=== PATIENT | male | born 1935 | race Two or more races ===

== ENCOUNTER 2019-07-15 09:41 | Emergency (ER) | payer MEDICARE, OTHER ==
--- NOTE | 2019-07-15 11:26 | ED Physician Documentation ---
PD HPI TRUNK INJURY - Stated complaint Stated Complaint: L SIDE PX - Chief complaint Chief Complaint: Trauma Ch/Bk - History obtained from History obtained from: Patient - History of Present Illness Location: Posterior chest, Left chest Type of injury: Fall (putting wires up on high shelf, lost balance and fell backward, striking left posterior chest/ribs on object. Pain localized. Continues to hurt with movement and palpation. Not pain with breathing.) Timing - onset: How many days ago (3) Timing - duration: Days (3) Timing - details: Abrupt onset, Still present Quality: Pain, Sharp Improved by: Rest Worsened by: Moving, Palpating Associated symtptoms: No: Weakness, Numbness, Discoloration Contributing factors: No: Anticoagulated Where injury occured: Home Recently seen: Not recently seen Review of Systems Constitutional: denies: Fever, Chills Nose: denies: Rhinorrhea / runny nose, Congestion Throat: denies: Sore throat Respiratory: denies: Dyspnea, Cough GI: denies: Abdominal Pain, Nausea, Vomiting Musculoskeletal: reports: Back pain Neurologic: reports: Other (poor sleep due to pain with lying/rolling over). denies: Generalized weakness, Focal weakness, Numbness PD PAST MEDICAL HISTORY - Past Medical History Cardiovascular: None Respiratory: None Neuro: None Endocrine/Autoimmune: None - Present Medications Home Medications: Ambulatory Orders Medication Instructions Recorded Confirmed Calcium Carbonate/Vitamin D3 2 tab ORAL BID 07/15/19 07/15/19 [Calcium 500-Vit D3 200 Tablet] Doxazosin [Cardura] 4 mg PO DAILY 07/15/19 07/15/19 Hydrocodone/Acetaminophen [[place] 1 each PO Q6H PRN #20 tablet 07/15/19 5-325 Tablet] Lisinopril [Zestril] 10 mg PO DAILY 07/15/19 07/15/19 Naproxen 375 mg PO BID #20 tablet 07/15/19 amLODIPine [Norvasc] 5 mg ORAL DAILY 07/15/19 07/15/19 - Allergies Allergies/Adverse Reactions: Allergies Allergy/AdvReac Type Severity Reaction Status Date / Time No Known Drug Allergies Allergy Verified 07/15/19 09:54 PD ED PE NORMAL - Vitals Vital signs reviewed: Yes - General General: Alert and oriented X 3, Well developed/nourished - HEENT HEENT: Atraumatic - Neck Neck: Supple, no meningeal sign, No bony TTP - Cardiac Cardiac: RRR, No murmur - Respiratory Respiratory: No respiratory distress, Clear bilaterally, Other (left posterolateral ribs tender without crepitance at lower ribs. No bruising. ) - Abdomen Abdomen: Normal bowel sounds, Soft, Non tender, Non distended - Derm Derm: Normal color, Warm and dry - Extremities Extremities: Normal ROM s pain - Neuro Neuro: Alert and oriented X 3, No motor deficit, Normal speech Results - Vitals Vitals: Vital Signs - 24 hr 07/15/19 07/15/19 07/15/19 09:55 10:50 11:52 Temperature 36.4 C L Heart Rate 62 64 86 Respiratory 16 16 18 Rate Blood Pressure 133/59 H 118/67 O2 Saturation 99 96 94 07/15/19 07/15/19 11:53 13:00 Temperature Heart Rate 63 Respiratory 16 Rate Blood Pressure 140/70 H 136/77 H O2 Saturation 97 Oxygen O2 Source Room air - EKG (time done) 11:33 Rate: Rate (enter#) (51) Rhythm: Sinus bradycardia QRS: Low voltage Ischemia: Normal ST segments. No: ST elevation c/w ischemia, ST depression - Rads (name of study) chest CT Radiology: Prelim report reviewed, See rad report (posterior left rib fractures 11 and 12, nondisplaced. No spine injuries. Mild local inflammation in lung c/w contusion.) PD MEDICAL DECISION MAKING - ED course Complexity details: reviewed results (left posterior ribs 11/12 fractures. No organ injuries. ), considered differential, d/w patient Departure - Departure Disposition: 01 Home, Self Care Clinical Impression: Accidental fall Qualifiers: Encounter type: initial encounter Qualified Code(s): W19.XXXA - Unspecified fall, initial encounter Left rib fracture Qualifiers: Encounter type: initial encounter Rib fracture type: multiple ribs Fracture type: closed Qualified Code(s): S22.42XA - Multiple fractures of ribs, left side, initial encounter for closed fracture Condition: Stable Record reviewed to determine appropriate education?: Yes Instructions: ED Fx Rib Follow-Up: Mike Goldberg MD [Primary Care Provider] - Prescriptions: Hydrocodone/Acetaminophen [[place] 5-325 Tablet] 1 each PO Q6H PRN #20 tablet PRN Reason: Pain Naproxen 375 mg PO BID #20 tablet Comments: You do have [address] ribs [address] your CT scan, #11 and 12 in the back left (where you are hurting). There is no injury to the lung heart kidney or spleen in the area. You will be sore likely for several weeks to a month but the worst is typically the first week. Use anti-inflammatories such as naproxen or ibuprofen 2-3 times a day. To that add Tylenol 4 times a day or instead hydrocodone if needed for worse pain, particularly at night. Have a daily stool softener to prevent constipation. Recheck if not improving well over the next week or if other symptoms develop such as trouble breathing etc. Discharge Date/Time: 07/15/19 14:05
[2019-07-15] MEDS ORDERED: IBUPROFEN 600 MG TABLET PO STA (11:40)
[2019-07-15] MEDS ORDERED: ACETAMINOPHEN 325 MG TABLET PO STA (11:40)
[2019-07-15 13:03] VITALS: BP 136/77
--- NOTE | 2019-07-15 13:11 | CT Report ---
Reason: fall with left chest wall pain Procedure Date: 07/15/2019 Accession Number: [id number] / [id number] Procedure: CT - CHEST WO CPT Code: Final Report FULL RESULT: EXAM: CT CHEST EXAM DATE: 07/15/2019 12:40 PM. CLINICAL HISTORY: Fall with left chest wall pain. COMPARISONS: None. TECHNIQUE: Routine helical CT imaging was performed through the chest. IV contrast: None. Reconstructions: Coronal and sagittal. In accordance with CT protocol optimization, one or more of the following dose reduction techniques were utilized for this exam: automated exposure control, adjustment of mA and/or KV based on patient size, or use of iterative reconstructive technique. FINDINGS: Lungs/Pleura: Mildly displaced left 11th and 12th rib fractures are noted (image 231 of series 4 and image 263 of series 4). Increased lung markings are noted within the adjacent lung that may represent a contusion or infiltrate. No pneumothorax is seen. Mediastinum: There is a large hiatal hernia. Atherosclerosis of the coronary arteries is noted. Bones: There are degenerative changes of the thoracic and lumbar spine. Visualized Abdomen: The visualized upper abdominal organs demonstrate a normal noncontrast CT appearance. Other: None. IMPRESSION: Left posterior 11th and 12th rib fractures. Increased lung markings in the adjacent lung that may represent a contusion or infiltrate. No evidence of a pneumothorax. RADIA
== END 2019-07-15 14:05 | disposition home or self-care (01) ==
LOC: ED 09:41
DX: S22.42XA Multiple fractures of ribs, left side, initial encounter for closed fracture (principal); W18.39XA Other fall on same level, initial encounter; Y93.89 Activity, other specified; Y92.009 Unspecified place in unspecified non-institutional (private) residence as the place of occurrence of the external cause
CPT/HCPCS: 71250; 93005; 99284; A9270

== ENCOUNTER 2020-12-24 14:09 | Emergency (ER) | payer MEDICARE, OTHER ==
[2020-12-24] MEDS ORDERED: PROPARACAINE 0.5% OPHTH DROPS 15 ML EACHEYE STA (14:30)
--- NOTE | 2020-12-24 14:56 | ED Physician Documentation ---
PD HPI OPHTHO - Stated complaint Stated Complaint: VISION BLURRY - Chief complaint Chief Complaint: Heent - History obtained from History obtained from: Patient - History of Present Illness Timing - details: Gradual onset Pain level max: 1 Pain level now: 0 Location: Left Quality / character: No: Itching, Burning, Aching, Throbbing, Sharp Associated symptoms: No: Redness, Swelling, Tearing, Discharge, Matting, FB sensation, Photophobia, Double vision, Decreased vision, Loss of vision, Headache Contributing factors: Wears glasses. No: Exposed to conjunctivitis, Recent URI, FB, UV light (welding etc), Chemical exposure, acid, Chemical exposure, base, Blunt trauma, Penetrating trauma, Irrigated CAR AUDIO INSTALLER, Wears contacts, Work related Similar symptoms before: Has not had sx before Recently seen: Not recently seen - Additional information Additional information: Patient is an 85-year-old male who states that his left eye vision appears blurry to him today. No loss of vision. No flashers. No trauma. He felt like something was in the eye earlier today, but does not feel that anymore. Nothing makes it better or worse. No redness, no tearing, no discharge, no photophobia. Wears glasses but not contacts. He contacted his organic gardening teacher who recommended he come here for evaluation. Patient has no other symptoms. The vision is not double. It is just not as sharp as usual. Review of Systems Constitutional: denies: Fever, Chills Eyes: denies: Loss of vision, Decreased vision, Photophobia, Discharge, Irritation Ears: denies: Ear pain Nose: denies: Rhinorrhea / runny nose, Congestion Throat: denies: Sore throat Cardiac: denies: Chest pain / pressure Respiratory: denies: Cough GI: denies: Vomiting, Diarrhea : denies: Dysuria Skin: denies: Rash Neurologic: denies: Focal weakness, Numbness, Seizure, Confused, Headache, Head injury, LOC PD PAST MEDICAL HISTORY - Past Medical History Past Medical History: Yes Cardiovascular: Hypertension Respiratory: None Neuro: None Endocrine/Autoimmune: None GI: GERD - Past Surgical History Past Surgical History: Yes Ortho: Other - Present Medications Home Medications: Ambulatory Orders Medication Instructions Recorded Confirmed Doxazosin [Cardura] 4 mg PO DAILY 07/15/19 12/24/20 Lisinopril [Zestril] 10 mg PO DAILY 07/15/19 12/24/20 amLODIPine [Norvasc] 5 mg ORAL DAILY 07/15/19 12/24/20 Duloxetine HCl [Cymbalta] 60 mg PO DAILY 12/24/20 12/24/20 buPROPion [Wellbutrin Sr] 150 mg PO DAILY PM 12/24/20 12/24/20 - Allergies Allergies/Adverse Reactions: Allergies Allergy/AdvReac Type Severity Reaction Status Date / Time No Known Drug Allergies Allergy Verified 12/24/20 14:22 - Social History Does the pt smoke?: No Smoking Status: Never smoker Does the pt drink ETOH?: Yes Does the pt have substance abuse?: No - Immunizations Immunizations are current?: Yes PD ED PE NORMAL - Vitals Vital signs reviewed: Yes - General General: Alert and oriented X 3, No acute distress, Well developed/nourished - HEENT HEENT: PERRL, Moist mucous membranes, Other (No fluorescein uptake. Intraocular pressure of 12-13 on the left eye. Limited funduscopic exam but appears normal. Bedside ultrasound reveals a normal optic nerve. No papilledema. No visible debris.) - Neck Neck: Supple, no meningeal sign - Cardiac Cardiac: RRR - Respiratory Respiratory: No respiratory distress, Clear bilaterally - Derm Derm: Warm and dry - Extremities Extremities: Normal ROM s pain - Neuro Neuro: Alert and oriented X 3, affirmative action specialist 2-12 intact, No motor deficit, No sensory deficit, Normal speech Eye Opening: Spontaneous Motor: Obeys Commands Verbal: Oriented GCS Score: 15 - Psych Psych: Normal mood, Normal affect Results - Vitals Vitals: Vital Signs - 24 hr 12/24/20 14:19 Temperature 36.5 C Heart Rate 86 Respiratory 16 Rate Blood Pressure 131/76 H O2 Saturation 98 Oxygen O2 Source Room air PD MEDICAL DECISION MAKING - ED course Complexity details: reviewed results, re-evaluated patient, considered differential, d/w patient ED course: Unclear etiology of the patient's blurry vision today. No acute findings on examination. Recommend that he follow-up with ophthalmology today if possible. We'll give him the name of two ophthalmologists. The patient's organic gardening teacher is in [facility]. He states that he did contact his doctor who referred him to the emergency department. Patient counseled regarding signs and symptoms for which I believe and urgent re-evaluation would be necessary. Patient with good understanding of and agreement to plan and is comfortable going home at this time This document was made in part using voice recognition software. While efforts are made to proofread this document, sound alike and grammatical errors may occur. No acute findings on fluorescein stain, normal pressure, normal retinal exam as far as I can visualize and appears normal on ultrasound. Departure - Departure Disposition: 01 Home, Self Care Clinical Impression: Blurry vision Condition: Good Instructions: Vision Probs Follow-Up: Jovan Cho MD [Provider Admit Priv/Credential] - Within 3 Days Comments: You can also call [facility] which is in the parking lot to see if they can see you today. Dr. Cho may be able to see you today as well. Your examination here appears normal. Please follow-up closely with ophthalmology for further care.
[2020-12-24 16:07] VITALS: BP 128/64
== END 2020-12-24 15:00 | disposition home or self-care (01) ==
LOC: ED 14:09
DX: H53.8 Other visual disturbances (principal); I10 Essential (primary) hypertension
CPT/HCPCS: 99282; 99284; J3490

== ENCOUNTER 2022-07-18 10:50 | Emergency (ER) | payer MEDICARE, BC ==
--- NOTE | 2022-07-18 12:12 | ED Physician Documentation ---
History of Present Illness - Stated complaint Stated Complaint: GLF/HEAD INJ/LEG PX - Chief complaint Chief Complaint: Trauma Hd/Nk - Additonal information Additional information: 86-year-old male is brought to the emergency department for evaluation of facial trauma and left hip pain. He states that 2 days ago he was taking trash out to the garbage can when he slipped on wet grass he fell forward into the ground and has large abrasions and bruising around his left face. Denies loss of consciousness. However he has had been having pain in his left thigh and hip for about 2 weeks. It is worse after the fall. He did go to a local walk-in clinic and because he is on Eliquis due to history of atrial fibrillation they advised him to come to the ER for CT imaging of the head. Though the patient has no previous history of DVT the patient's is concerned that the thigh pain could be a sign of deep vein thrombosis. Patient reports compliance with his Eliquis. He is unsure if he had a fall previous to 2 weeks ago. Patient is elderly and a fair historian. Review of Systems Constitutional: denies: Fever, Chills Eyes: reports: Reviewed and negative Nose: reports: Reviewed and negative Throat: reports: Reviewed and negative Cardiac: reports: Reviewed and negative Respiratory: reports: Reviewed and negative GI: reports: Reviewed and negative Skin: reports: Abrasion (s) Musculoskeletal: reports: Joint pain Neurologic: denies: Near syncope PD PAST MEDICAL HISTORY - Past Medical History Cardiovascular: Hypertension Respiratory: None Neuro: None Endocrine/Autoimmune: None GI: GERD - Past Surgical History Past Surgical History: Yes Ortho: Other - Present Medications Home Medications: Ambulatory Orders Medication Instructions Recorded Confirmed Doxazosin [Cardura] 4 mg PO DAILY 07/15/19 07/18/22 Lisinopril [Zestril] 10 mg PO DAILY 07/15/19 07/18/22 amLODIPine [Norvasc] 5 mg ORAL DAILY 07/15/19 07/18/22 buPROPion [Wellbutrin Sr] 150 mg PO DAILY PM 12/24/20 07/18/22 Apixaban [Eliquis] 2.5 mg PO BID 07/18/22 07/18/22 Sertraline HCl 150 mg PO DAILY 07/18/22 07/18/22 - Allergies Allergies/Adverse Reactions: Allergies Allergy/AdvReac Type Severity Reaction Status Date / Time No Known Drug Allergies Allergy Verified 07/18/22 11:34 - Social History Does the pt smoke?: No Smoking Status: Never smoker Does the pt drink ETOH?: Yes Does the pt have substance abuse?: No - Immunizations Immunizations are current?: Yes PD ED PE NORMAL - General General: Alert and oriented X 3, No acute distress, Well developed/nourished - HEENT HEENT: EOMI, Ears normal, Moist mucous membranes, Other (No hemotympanums. Large area of bruising and ecchymosis on the left face periorbital region and left cheek. PERRLA as well as EOMI). No: Atraumatic - Cardiac Cardiac: No murmur, Strong equal pulses. No: RRR (Irregularly irregular. Atrial fibrillation on the monitor) - Respiratory Respiratory: No respiratory distress, Clear bilaterally - Abdomen Abdomen: Normal bowel sounds, Soft, Non tender - Back Back: No spinal TTP (No tenderness elicited with palpation of the cervical, thoracic or lumbar spinous processes.) - Extremities Extremities: No deformity, No tenderness to palpate. No: Normal ROM s pain (Mild tenderness with palpation of the left proximal femur. Full range of motion in the hip. He has a mildly antalgic gait. No obvious deformity malrotation or leg shortening) - Neuro Neuro: Alert and oriented X 3, care taker 2-12 intact Eye Opening: Spontaneous Motor: Obeys Commands Verbal: Oriented GCS Score: 15 Results - Vitals Vitals: Vital Signs - 24 hr 07/18/22 07/18/22 07/18/22 11:35 11:41 12:11 Temperature 36.5 C Heart Rate 74 56 L 62 Respiratory 18 29 H 17 Rate Blood Pressure 138/72 H 101/66 146/63 H O2 Saturation 100 99 100 07/18/22 13:00 Temperature Heart Rate 55 L Respiratory 14 Rate Blood Pressure 136/64 H O2 Saturation 100 Oxygen O2 Source Room air - Rads (name of study) US DVT Radiology: Final report received (No deep vein thrombosis of the left leg. Whitfield's cyst.) Max fac CT Radiology: Final report received (Normal maxillofacial CT without fracture) head CT Radiology: Final report received (Atrophy and chronic ischemic change without intracranial hemorrhage or mass-effect) cervical CT Radiology: Final report received (Degenerative disc disease and arthropathy without fracture or traumatic malalignment) pelvic CT Radiology: Final report received (No acute fracture or osseous lesion or dislocation. Hematoma within the soft hip tissues) PD Medical Decision Making - ED course Complexity details: reviewed results, considered differential, d/w patient ED course: 86-year-old male presents emergency department for evaluation of facial trauma after ground-level fall 2 days ago. History of atrial fibs and is anticoagulated on Eliquis. He did not lose consciousness but sustained a large area of ecchymosis on the left side of his face surrounding his left eye. EOMIs were intact. He presents alert and otherwise well-appearing and nonfocal. He had also reported pain in his left hip for about 2 weeks that was certainly worse after the fall. Here in the emergency department CT of the head max face and cervical series showed no acute fracture bruises or bleeding. We did obtain a pelvic CT to evaluate for hip fracture and do not find any osseous lesions though he does have a left hip hematoma which is likely the source of the pain. His is concerned that he could have a DVT and that ultrasound was reassuringly negative. However given his limp with ambulation, advancing age as well as anticoagulation status he is going to be dispensed a walker upon discharge. Will follow closely with PCP. Emergent return precautions otherwise discussed. Departure - Departure Disposition: 01 Home, Self Care Clinical Impression: Fall from ground level, Anticoagulated Facial abrasion Qualifiers: Encounter type: initial encounter Qualified Code(s): S00.81XA - Abrasion of other part of head, initial encounter Hip hematoma, left Qualifiers: Encounter type: initial encounter Qualified Code(s): S70.02XA - Contusion of left hip, initial encounter Whitfield's cyst of knee Qualifiers: Laterality: left Qualified Code(s): M71.22 - Synovial cyst of popliteal space [Whitfield], left knee Condition: Stable Record reviewed to determine appropriate education?: Yes Instructions: ED Hematoma Comments: You were seen today in the emergency department because you had a fall 2 days ago while on Eliquis for your history of atrial fibrillation. You do have a large area of bruising on your left side of the face. This will simply heal with time. You can apply bacitracin to your abrasions and cuts. The CTs of your head, facial bones and neck do not show any broken bones bruising or bleeding within the brain. We also did a pelvic CT and do not find any broken bones however there is a large hematoma in the soft tissue of the hip which is likely the cause of your pain. The ultrasound of your leg did not show a blood clot. You do have a Whitfield's cyst which is a fluid-filled sac behind your left knee. This helps the joint move. It is bruised and this is most likely because of the fall a few days ago. There is no specific treatment for it at this time this will simply resolve. Because you are at higher risk for falls I am dispensing you with a walker. I encourage you to use this when ambulating out of bed. If you find that your walking is improving once the hematomas resolve you may be able to walk without it. Please return immediately to the ER for any fevers, sudden severe headache, slurred speech, facial droop or any concerns for your symptoms to resolve
--- OUTSIDE RECORDS SUMMARY | 2022-07-18 12:18 | EXTERNAL MEDICAL SUMMARY RPT | Continuity of Care Document ---
:1935 Author Organization [facility] Address [address] [place] [address] Phone Care Team Providers Name Role Phone Unavailable Unavailable Unavailable Dom Carrillo Robert Unavailable Unavailable Andre Patient Registrar, Nalini Unavailable Unavai lable Allergies No information. Encounters No information. Functional Status No information. Immunizations No information. Medications date description facility 2022-07-17 00:00 apixaban [facility] 2022-07-17 00:00 apixaban [facility] 2022-07-18 00:00 apixaban [facility] 2022-07-17 00:00 lisinopril [facility] 2022-07-17 00:00 lisinopril [facility] 2022-07-18 00:00 lisinopril [facility] 2022-07-17 00:00 hydroxyzine hcl [facility] 2022-07-17 00:00 hydroxyzine hcl [facility] 2022-07-18 00:00 hydroxyzine hcl [facility] 2022-07-17 00:00 bupropion hcl [facility] 2022-07-17 00:00 bupropion hcl [facility] 2022-07-18 00:00 bupropion hcl [facility] 2022-07-17 00:00 hydroxyzine hcl [facility] 2022-07-17 00:00 hydroxyzine hcl [facility] 2022-07-18 00:00 hydroxyzine hcl [facility] 2022-07-17 00:00 methocarbamol [facility] 2022-07-17 00:00 methocarbamol [facility] 2022-07-17 00:00 apixaban [facility] 2022-07-17 00:00 apixaban [facility] 2022-07-18 00:00 apixaban [facility] 2022-07-17 00:00 apixaban [facility] 2022-07-17 00:00 apixaban [facility] 2022-07-18 00:00 apixaban [facility] 2022-07-17 00:00 amlodipine [facility] 2022-07-17 00:00 amlodipine [facility] 2022-07-18 00:00 amlodipine [facility] 2022-07-17 00:00 doxazosin [facility] 2022-07-17 00:00 doxazosin [facility] 2022-07-18 00:00 doxazosin [facility] 2022-07-17 00:00 methocarbamol [facility] 2022-07-17 00:00 methocarbamol [facility] 2022-07-17 00:00 amlodipine [facility] 2022-07-17 00:00 amlodipine [facility] 2022-07-18 00:00 amlodipine [facility] 2022-07-17 00:00 doxazosin [facility] 2022-07-17 00:00 doxazosin [facility] 2022-07-18 00:00 doxazosin [facility] 2022-07-17 00:00 lisinopril [facility] 2022-07-17 00:00 lisinopril [facility] 2022-07-18 00:00 lisinopril [facility] 2022-07-17 00:00 sertraline [facility] 2022-07-17 00:00 sertraline [facility] 2022-07-18 00:00 sertraline [facility] 2022-07-17 00:00 sertraline [facility] 2022-07-17 00:00 sertraline [facility] 2022-07-18 00:00 sertraline [facility] 2022-07-17 00:00 lisinopril [facility] 2022-07-17 00:00 lisinopril [facility] 2022-07-18 00:00 lisinopril [facility] 2022-07-17 00:00 methocarbamol [facility] 2022-07-17 00:00 methocarbamol [facility] 2022-07-17 00:00 amlodipine [facility] 2022-07-17 00:00 amlodipine [facility] 2022-07-18 00:00 amlodipine [facility] 2022-07-17 00:00 lisinopril [facility] 2022-07-17 00:00 lisinopril [facility] 2022-07-18 00:00 lisinopril [facility] 2022-07-17 00:00 doxazosin [facility] 2022-07-17 00:00 doxazosin [facility] 2022-07-18 00:00 doxazosin [facility] 2022-07-17 00:00 hydroxyzine hcl [facility] 2022-07-17 00:00 hydroxyzine hcl [facility] 2022-07-18 00:00 hydroxyzine hcl [facility] 2022-07-17 00:00 sertraline [facility] 2022-07-17 00:00 sertraline [facility] 2022-07-18 00:00 sertraline [facility] 2022-07-17 00:00 bupropion hcl [facility] 2022-07-17 00:00 bupropion hcl [facility] 2022-07-18 00:00 bupropion hcl [facility] 2022-07-17 00:00 amlodipine [facility] 2022-07-17 00:00 amlodipine [facility] 2022-07-18 00:00 amlodipine [facility] 2022-07-17 00:00 sertraline [facility] 2022-07-17 00:00 sertraline [facility] 2022-07-18 00:00 sertraline [facility] 2022-07-17 00:00 doxazosin [facility] 2022-07-17 00:00 doxazosin [facility] 2022-07-18 00:00 doxazosin [facility] 2022-07-17 00:00 methocarbamol [facility] 2022-07-17 00:00 methocarbamol [facility] 2022-07-17 00:00 apixaban [facility] 2022-07-17 00:00 apixaban [facility] 2022-07-18 00:00 apixaban [facility] 2022-07-17 00:00 bupropion hcl [facility] 2022-07-17 00:00 bupropion hcl [facility] 2022-07-18 00:00 bupropion hcl [facility] 2022-07-17 00:00 bupropion hcl [facility] 2022-07-17 00:00 bupropion hcl [facility] 2022-07-18 00:00 bupropion hcl [facility] 2022-07-17 00:00 hydroxyzine hcl [facility] 2022-07-17 00:00 hydroxyzine hcl [facility] 2022-07-18 00:00 hydroxyzine hcl [facility] Problems date description facility 2022-07-17 00:00 Contusion of right ear [facility] 2022-07-17 00:00 No current problems or disability - [facility] 2022-07-17 00:00 Anticoagulant therapy [facility] 2022-07-17 00:00 Pain in left lower limb [facility] 2022-07-17 00:00 Pain in limb [facility] 2022-07-17 00:00 Pain in left leg [facility] 2022-07-17 00:00 Contusion of other part of head, [facility] encounter [facility] [place] 2022-07-17 00:00 Long-term (current) use of [facility] [place] 2022-07-17 00:00 long term care administrator (current) use of [facility] Procedures date description facility 2022-07-17 00:00 Visit Code Hold [facility] Results/Labs No information. Social History date description facility 2022-07-17 00:00 Never smoker [facility] 2022-07-17 00:00 Unknown if ever smoked [facility] Vital Signs date measurement value units 2022-07-17 00:00 BMI 26.40 kg/m2 2022-07-17 00:00 BP_diastolic 72 mmHg 2022-07-17 00:00 BP_systolic 122 mmHg 2022-07-17 00:00 heart_rate 88 /min 2022-07-17 00:00 height_metric 172.72 cm 2022-07-17 00:00 height_standard 68 in 2022-07-17 00:00 respiration_rate 16 /min 2022-07-17 00:00 temperature_metric 36.11 C 2022-07-17 00:00 temperature_standard 97 F 2022-07-17 00:00 weight_metric 78.47 kg 2022-07-17 00:00 weight_standard 173 lb
--- NOTE | 2022-07-18 13:44 | CT Report ---
PROCEDURE: CT brain without contrast INDICATIONS: 86-year-old male with head trauma, anticoagulation TECHNIQUE: Noncontrast 4.5 mm thick angled axial sections acquired from the foramen magnum to the vertex. For r adiation dose reduction, the following was used: automated exposure control, adjustment of mA and/or kV according to patient size. COMPARISON: None. FINDINGS: Image quality: Excellent. CSF spaces: Basal cisterns are patent. No extra-axial fluid collections. Ventricles are normal in size and shape. Brain: No midline shift. No intracranial masses or hemorrhage. Sherman-white matter interface is norm al. Moderate atrophy and multifocal white matter chronic ischemic change noted. Atherosclerotic vasc ular calcification noted in the cavernous segments of both internal carotid arteries as well as the i ntradural vertebral arteries. Skull and face: Calvarium and visualized facial bones are intact, without suspicious lesions. Unila teral left intraocular lens replacement Sinuses: Visualized sinuses and mastoids are clear. IMPRESSION: Atrophy and chronic ischemic change without intracranial hemorrhage or mass effect Reviewed by: Darwin Vieyra MD on 07/18/2022 12:42 PM [facility] Approved by: Darwin Vieyra MD on 07/18/2022 12:42 PM AK[facility] Station ID: [id number]
--- NOTE | 2022-07-18 13:47 | CT Report ---
PROCEDURE: Maxillofacial CT without contrast INDICATIONS: 86-year-old male with ground-level fall and left eye bruising TECHNIQUE: Noncontrast 1.5 mm thick axial images acquired from the mandible through the frontal sinuses, with co trish and sagittal reformatting. For radiation dose reduction, the following was used: automated ex posure control, adjustment of mA and/or kV according to patient size. COMPARISON: None. FINDINGS: Image quality: Excellent. Bones and teeth: Orbital mejia are intact. Incidental unilateral left intraocular lens replacement S inus mejia show no fracture or deformity. Nasal bones and septum are intact. Visualized portions of the mandible demonstrate no fractures or subluxation. Zygomatic arches are intact. Pterygoid plate s are intact. Visualized portions of the skull base and auditory canals are intact. Sinuses: Mild left frontal and left maxillary sinus mucosal thickening Soft tissues: No edema, masses, or fluid collections. No enlarged lymph nodes. No soft tissue lace rations or debris. Vascular: Visualized vascular structures appear normal in the absence of contrast. Bony vascular fo ramina and canals are intact. IMPRESSION: Normal maxillofacial CT without fracture Reviewed by: Darwin Vieyra MD on 07/18/2022 12:45 PM [place] Approved by: Darwin Vieyra MD on 07/18/2022 12:45 PM [facility] Station ID: [id number]
--- NOTE | 2022-07-18 13:48 | CT Report ---
PROCEDURE: PELVIS WO INDICATIONS: left hip; ? fx TECHNIQUE: Noncontrast 3 mm axial sections acquired through the bony pelvis, with coronal and sagittal reformatt ing. For radiation dose reduction, the following was used: automated exposure control, adjustment of mA and/or kV according to patient size. COMPARISON: None. FINDINGS: Image quality: Excellent. Bones: No displaced fracture. No dislocation. Scattered degenerative changes. Partially visualized l umbosacral spondylosis is also seen. No suspicious osseous lesions. Scattered enthesophytes, for exam ple at the hamstrings attachment. Soft tissues: Colonic diverticula. Hematoma. No drainable fluid collection. No lymphadenopathy or an eurysm on this noncontrast limited study. IMPRESSION: No displaced fracture or dislocation. Other findings as above Reviewed by: Darrius Riojas MD on 07/18/2022 1:46 PM PST Approved by: Darrius Riojas MD on 07/18/2022 1:46 PM PST Station ID: [id number]
--- NOTE | 2022-07-18 13:56 | CT Report ---
PROCEDURE: CT cervical spine without contrast INDICATIONS: 86-year-old male status post ground level fall, neck pain TECHNIQUE: Noncontrast 3 mm thick sections acquired from the skull base to the T4 level. Sagittal and coronal r eformats were then constructed. For radiation dose reduction, the following was used: automated exp osure control, adjustment of mA and/or kV according to patient size. COMPARISON: None. FINDINGS: Image quality: Excellent. Bones: No fractures or dislocations. Visualized superior ribs are intact. Degenerative disc space narrowing and hypertrophic facet joints and noted in the mid to lower cervica l spine. Cranial vertebral relationships and bone mineralization normal. Moderate central stenosis at C3-4 Soft tissues: Prevertebral soft tissues are normal in thickness. No paravertebral hematomas. No ap ical pneumothoraces. IMPRESSION: Degenerative disc disease and arthropathy without fracture or traumatic malalignment Reviewed by: Darwin Vieyra MD on 07/18/2022 12:54 PM [facility] Approved by: Darwin Vieyra MD on 07/18/2022 12:54 PM [facility] Station ID: [id number]
[2022-07-18 14:14] VITALS: BP 100/60
--- NOTE | 2022-07-18 14:41 | Ultrasound Report ---
PROCEDURE: Duplex Ext Veins Left INDICATIONS: left thigh pain; ? dvt TECHNIQUE: Real-time imaging, as well as color and pulse Doppler interrogation, were performed of the lower extr emity deep veins from the inguinal ligament to the popliteal fossa. COMPARISON: None. FINDINGS: The deep veins are normally compressible, and free of intraluminal thrombus. Color and pu lse Doppler demonstrate normal phasic intraluminal flow. There is normal augmentation response to di stal compression maneuver. IMPRESSION: No evidence of deep venous thrombosis, left lower extremity. Small popliteal cyst measures 1.7 x 2.1 cm Reviewed by: Darwin Vieyra MD on 07/18/2022 1:40 PM [place] Approved by: Darwin Vieyra MD on 07/18/2022 1:40 PM [facility] Station ID: [id number]
== END 2022-07-18 15:23 | disposition home or self-care (01) ==
LOC: ED 10:50
DX: S00.81XA Abrasion of other part of head, initial encounter (principal); S70.02XA Contusion of left hip, initial encounter; W01.0XXA Fall on same level from slipping, tripping and stumbling without subsequent striking against object, initial encounter; Z91.81 History of falling; Y93.E9 Activity, other interior property and clothing maintenance; Y92.007 Garden or yard of unspecified non-institutional (private) residence as the place of occurrence of the external cause; M71.22 Synovial cyst of popliteal space [Baker], left knee; Z79.01 Long term (current) use of anticoagulants
CPT/HCPCS: 36415; 99284

== ENCOUNTER 2023-02-24 23:44 | Outpatient (CLI) | payer MEDICARE, BC | END 2023-02-24 23:59 | disposition critical access hospital (66) | LOC: EMS 23:44 | DX: S00.01XA Abrasion of scalp, initial encounter (principal); M54.2 Cervicalgia; M25.552 Pain in left hip; Z79.01 Long term (current) use of anticoagulants; W18.39XA Other fall on same level, initial encounter; Y92.002 Bathroom of unspecified non-institutional (private) residence as the place of occurrence of the external cause | CPT/HCPCS: A0425; A0429 ==

== ENCOUNTER 2023-02-25 00:12 | Emergency (ER) | payer MEDICARE, BC ==
--- NOTE | 2023-02-25 00:20 | ED Physician Documentation ---
PD HPI Fall - Stated complaint Stated Complaint: GLF - HIT HEAD - History obtained from History obtained from: Patient, EMS - Additional information Additional information: BIBA. HPI from patient and EMS. Presents from home due to fall. Patient says he fell shortly before 911 was called due to loss of balance while walking from his bed to the bathroom; he indicates to me that this is not a new problem for him (balance issues with ambulation). He takes eliquis for atrial fibrillation. He is asymptomatic on my HPI. He denies LOC, denies YU, denies pain. He indicates to me that he knows he needs to have low threshold for calling 911 after a fall because he is taking eliquis. EMS indicates that patient was c/o mild left hip pain and neck pain on their evaluation on scene. PD PAST MEDICAL HISTORY - Past Medical History Cardiovascular: Hypertension Respiratory: None Neuro: None Endocrine/Autoimmune: None GI: GERD - Past Surgical History Past Surgical History: Yes Ortho: Other - Present Medications Home Medications: Ambulatory Orders Medication Instructions Recorded Confirmed Doxazosin [Cardura] 4 mg PO DAILY 07/15/19 07/18/22 Lisinopril [Zestril] 10 mg PO DAILY 07/15/19 07/18/22 amLODIPine [Norvasc] 5 mg ORAL DAILY 07/15/19 07/18/22 buPROPion [Wellbutrin Sr] 150 mg PO DAILY PM 12/24/20 07/18/22 Apixaban [Eliquis] 2.5 mg PO BID 07/18/22 07/18/22 Sertraline HCl 150 mg PO DAILY 07/18/22 07/18/22 - Allergies Allergies/Adverse Reactions: Allergies Allergy/AdvReac Type Severity Reaction Status Date / Time No Known Drug Allergies Allergy Verified 07/18/22 11:34 - Social History Does the pt smoke?: No Smoking Status: Never smoker Does the pt drink ETOH?: Yes Does the pt have substance abuse?: No - Immunizations Immunizations are current?: Yes PD ED PE NORMAL - Vitals Vital signs reviewed: Yes - General General: Alert and oriented X 3, No acute distress, Well developed/nourished, Other (cervical collar in place on arrival) - HEENT HEENT: Atraumatic, PERRL, EOMI - Neck Neck: No bony TTP (cervical collar left in place; palpation is through posterior opening in cervical collar) - Cardiac Cardiac: RRR - Respiratory Respiratory: No respiratory distress, Clear bilaterally - Abdomen Abdomen: Soft, Non tender - Neuro Neuro: Alert and oriented X 3, manager night 2-12 intact, No motor deficit, No sensory deficit, Normal speech Eye Opening: Spontaneous Motor: Obeys Commands Verbal: Oriented GCS Score: 15 - Psych Psych: Normal mood, Normal affect PD ED PE EXPANDED - Cardiac Cardiac: Murmur Present (3/6 LETI across precordium but most pronounced at base) Results - Vitals Vitals: Oxygen O2 Source Room air - Rads (name of study) CTH Relevant Findings:: Prelim report reviewed, See rad report CT cervical spine Relevant Findings:: Prelim report reviewed, See rad report PD Medical Decision Making - ED course Complexity details: reviewed results, re-evaluated patient, considered differential, d/w patient ED course: No acute abnormalities on CTH, CT cervical spine. Denies LOC and says he fell due to loss of balance, indicates to me on HPI that this (loss of balance) is an ongoing issue for him and thus no other testing undertaken at this time aside from the CT scans. On reevaluation, results of CT scans d/w patient. Return precautions reviewed. He remains asymptomatic and AAOx3. Departure - Departure Disposition: 01 Home, Self Care Clinical Impression: Accidental fall Condition: Good Instructions: ED Prevention Fall, ED Fall Dizziness Weakn Balance Comments: There were no concerning findings on the CT scan of your head, CT scan of your neck. The CT scan of the neck does show degenerative changes, which is not an unexpected finding (over time, degenerative changes are common in the joints including the vertebrae of the back and neck). Most importantly, there is no evidence of any bleeding on the CT scan of your head, which is a concern anytime you have a fall with head injury while taking a blood thinner strong as Eliquis. Forms: PCP List Discharge Date/Time: 02/25/23 02:55
--- NOTE | 2023-02-25 01:32 | CT Report ---
PROCEDURE: CERVICAL SPINE WO INDICATIONS: fall, neck pain TECHNIQUE: Noncontrast 3 mm thick sections acquired from the skull base to the T4 level. Sagittal and coronal r eformats were then constructed. For radiation dose reduction, the following was used: automated exp osure control, adjustment of mA and/or kV according to patient size. COMPARISON: Similar CT 07/18/2022. FINDINGS: Image quality: Excellent. Bones: No fractures or dislocations. Visualized superior ribs are intact. Soft tissues: Prevertebral soft tissues are normal in thickness. No paravertebral hematomas. No ap ical pneumothoraces. 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 Reviewed by: Gustabo Savage MD on 02/25/2023 1:30 AM PDT Approved by: Gustabo Savage MD on 02/25/2023 1:30 AM PDT Station ID: [id number]
--- NOTE | 2023-02-25 01:33 | CT Report ---
PROCEDURE: HEAD WO INDICATIONS: fall, head injury, on eliquis TECHNIQUE: Noncontrast 4.5 mm thick angled axial sections acquired from the foramen magnum to the vertex. For r adiation dose reduction, the following was used: automated exposure control, adjustment of mA and/or kV according to patient size. COMPARISON: Similar CT 07/18/2022. FINDINGS: Image quality: Excellent. CSF spaces: Basal cisterns are patent. No extra-axial fluid collections. Ventricles are normal in size and shape. Brain: No midline shift. No intracranial masses or hemorrhage. Sherman-white matter interface is norm al. Skull and face: Calvarium and visualized facial bones are intact, without suspicious lesions. Sinuses: Visualized sinuses and mastoids are clear. IMPRESSION: No trauma found. Reviewed by: Gustabo Savage MD on 02/25/2023 1:31 AM PDT Approved by: Gustabo Savage MD on 02/25/2023 1:31 AM PDT Station ID: [id number]
[2023-02-25 02:47] VITALS: BP 143/62; O2SAT 96
== END 2023-02-25 02:55 | disposition home or self-care (01) ==
LOC: EDSEX → EDBD → EDUNIT# → ED 00:12
DX: Z04.3 Encounter for examination and observation following other accident (principal); Z79.01 Long term (current) use of anticoagulants
CPT/HCPCS: 99283; 99284

== ENCOUNTER 2023-03-15 13:53 | Outpatient (CLI) | payer MEDICARE, BC | END 2023-03-15 13:54 | disposition critical access hospital (66) | LOC: EMS 13:53 | DX: S01.111A Laceration without foreign body of right eyelid and periocular area, initial encounter (principal); W01.0XXA Fall on same level from slipping, tripping and stumbling without subsequent striking against object, initial encounter; Y92.512 Supermarket, store or market as the place of occurrence of the external cause | CPT/HCPCS: A0425; A0429 ==

== ENCOUNTER 2023-03-15 14:17 | Emergency (ER) | payer MEDICARE, BC ==
[2023-03-15] MEDS ORDERED: lidocaine 1% 20 ML MDV SUBQ ONE (14:33)
[2023-03-15] MEDS ORDERED: lidocaine 1% 20 ML MDV ONE (14:34)
--- NOTE | 2023-03-15 14:56 | ED Physician Documentation ---
PD HPI HEAD INJURY - Stated complaint Stated Complaint: GLF/EYE LAC - Chief complaint Chief Complaint: Trauma Hd/Nk - History obtained from History obtained from: Patient, EMS - Additional information Additional information: The patient comes to the emergency department via EMS with chief complaint of head injury after slipping and falling at the grocery store. He states there was something slippery on the hard surface floor there and he suddenly felt his feet going out from under him. He believes he hit his head on the floor that he is not entirely sure because it happened so fast. He is reported to have a laceration above his right eye thought to be from the rim of his glasses. The patient denies any other injuries other than feeling like he might of "bruised his knee". He was helped to the stretcher by medics from the floor and did not feel any hip pain. He denies neck, back, shoulder, rib, or abdominal pain. No hip or pelvic pain. He did not lose consciousness. No visual changes in his right eye. He is anticoagulated. No other complaints at this time. Injury happened just prior to transport to the ED. PD PAST MEDICAL HISTORY - Past Medical History Cardiovascular: Hypertension, Atrial fibrillation Respiratory: None Neuro: None Endocrine/Autoimmune: None GI: GERD - Past Surgical History Past Surgical History: Yes Ortho: Other - Present Medications Home Medications: Ambulatory Orders Medication Instructions Recorded Confirmed Doxazosin [Cardura] 2 mg PO TID 07/15/19 03/15/23 Lisinopril [Zestril] 10 mg PO DAILY 07/15/19 03/15/23 amLODIPine [Norvasc] 5 mg ORAL DAILY 07/15/19 03/15/23 buPROPion [Wellbutrin Sr] 150 mg PO DAILY PM 12/24/20 03/15/23 Apixaban [Eliquis] 2.5 mg PO BID 07/18/22 03/15/23 Sertraline HCl 100 mg PO BID 07/18/22 03/15/23 Omeprazole Magnesium 20 mg PO DAILY 03/15/23 03/15/23 hydrOXYzine HCL [Hydroxyzine HCl] 25 mg PO BID PRN 03/15/23 03/15/23 - Allergies Allergies/Adverse Reactions: Allergies Allergy/AdvReac Type Severity Reaction Status Date / Time No Known Drug Allergies Allergy Verified 03/15/23 14:24 - Social History Does the pt smoke?: No Smoking Status: Never smoker Does the pt drink ETOH?: Yes Does the pt have substance abuse?: No - Immunizations Immunizations are current?: Yes PD ED PE NORMAL - Vitals Vital signs reviewed: Yes - General General: Alert and oriented X 3, No acute distress, Well developed/nourished - HEENT HEENT: PERRL, EOMI, Moist mucous membranes, Other (3 cm total length stellate laceration involving the superolateral orbital rim on the right. No bony defo rmity underlying. Moderate soft tissue swelling. Does not involve eyelid. No other facial injuries or head injuries.) - Neck Neck: Supple, no meningeal sign - Cardiac Cardiac: RRR, No murmur - Respiratory Respiratory: No respiratory distress, Clear bilaterally - Abdomen Abdomen: Soft, Non tender, Non distended - Derm Derm: Warm and dry, Other (Laceration as described above. Surrounding contusion with approximately 1 cm of soft tissue elevation secondary to edema noted. Bleeding controlled.) - Extremities Extremities: No deformity, No edema - Neuro Neuro: Alert and oriented X 3 - Psych Psych: Normal mood, Normal affect Results - Vitals Vitals: Vital Signs - 24 hr 03/15/23 03/15/23 03/15/23 14:21 16:24 17:16 Temperature 36.0 C L Heart Rate 45 L 43 L 47 L Respiratory 18 18 16 Rate Blood Pressure 152/59 H 173/71 H 167/77 H O2 Saturation 99 97 98 Oxygen O2 Source Room air - Rads (name of study) CT head no contrast Relevant Findings:: Final report received, See rad report (Negative) CT face no contrast Relevant Findings:: Final report received, See rad report (Negative) CT cervical spine Relevant Findings:: Final report received, See rad report (Negative) Procedures - Laceration (location) Forehead laceration Length in cm: 3 Wound type: Stellate, Into subcut fat Neurovascular status: Sensory intact, Motor intact, Vascular intact Anesthesia: Lidocaine 1% Wound preparation: Hibiclens, Irrigated copiously NS, Wound explored, To the base Skin layer closure: Nylon, Interrupted, Size #-0 - enter number (5.0), Sutures - enter # (7) Other: Patient tolerated well, No complications, Dressing applied, Tetanus UTD (Last tetanus booster 2020) PD Medical Decision Making - ED course Complexity details: reviewed results, re-evaluated patient, considered differential, d/w patient ED course: The patient was evaluated upon arrival in the emergency department. He did not seem to be seriously injured, but given the presence of anticoagulants, I felt he should have a CT scan of the head, in addition to the face, which was being imaged due to the direct facial trauma. He also had some tenderness, though mild, of C7, and so he was also sent for a CT of the cervical spine. These were done and negative. His laceration was repaired as above. Last tetanus shot was in 2020 so the patient was up-to-date. We have discussed wound care at home, timeline for suture removal, and the usual indications for sooner return. Departure - Departure Disposition: 01 Home, Self Care Clinical Impression: Facial laceration Qualifiers: Encounter type: initial encounter Qualified Code(s): S01.81XA - Laceration without foreign body of other part of head, initial encounter Closed head injury Qualifiers: Encounter type: initial encounter Qualified Code(s): S09.90XA - Unspecified injury of head, initial encounter Condition: Stable Instructions: ED Head Injury Closed, ED Laceration All Comments: All of your CT scans look good. There is no evidence of bleeding in your brain or any broken bones in your head or neck. Your cough has been repaired with 7 synthetic sutures today. These sutures will not dissolve on their own and will need to be removed in about 7 days. You may have this done at your doctor's office or at the walk-in clinic, or you may return to the emergency department. You should keep the wound clean and generally dry; However, you may allow soap and water to run over the wound. Please do not rub, scrub, or immerse the wound until the stitches are taken out. This is to help prevent infection. Forms: PCP List Discharge Date/Time: 03/15/23 17:16
--- NOTE | 2023-03-15 16:43 | CT Report ---
PROCEDURE: HEAD WO INDICATIONS: fall/head injury/anticoag TECHNIQUE: Noncontrast 4.5 mm thick angled axial sections acquired from the foramen magnum to the vertex. For r adiation dose reduction, the following was used: automated exposure control, adjustment of mA and/or kV according to patient size. COMPARISON: 02/25/2023 FINDINGS: Image quality: Good CSF spaces: Basal cisterns are patent. Lateral ventricles are symmetric. Volume: Vascular calcifications. Periventricular white matter disease is commonly seen with chronic m icroangiopathy. Volume loss is present. These findings are moderate to severe. Brain: No intracranial hemorrhage. Sherman-white differentiation is grossly maintained. Craniofacial structures: Separately dictated. IMPRESSION: No acute intracranial abnormality. Facial findings are separately dictated. Reviewed by: Darrius Riojas MD on 03/15/2023 4:42 PM PDT Approved by: Darrius Riojas MD on 03/15/2023 4:42 PM PDT Station ID: [id number]
--- NOTE | 2023-03-15 16:45 | CT Report ---
PROCEDURE: CERVICAL SPINE WO INDICATIONS: fall/head injury/c-7 tend TECHNIQUE: Noncontrast 3 mm thick sections acquired from the skull base to the T4 level. Sagittal and coronal r eformats were then constructed. For radiation dose reduction, the following was used: automated exp osure control, adjustment of mA and/or kV according to patient size. COMPARISON: 02/25/2023 FINDINGS: Image quality: Good Bones: Moderate to severe degenerative changes. No evidence of traumatic subluxation or acute appeari ng vertebral body height loss. Overall appearance is similar to recent CT. Soft tissues: Vascular calcifications. No apical pneumothorax. IMPRESSION: No acute fracture/subluxation of the cervical spine. Moderate severe degenerative changes. If there i s high concern for further derangement, consider MRI evaluation. Reviewed by: Darrius Riojas MD on 03/15/2023 4:44 PM PDT Approved by: Darrius Riojas MD on 03/15/2023 4:44 PM PDT Station ID: [id number]
--- NOTE | 2023-03-15 16:49 | CT Report ---
PROCEDURE: MAXILLOFACIAL WO INDICATIONS: facial injury TECHNIQUE: Noncontrast 1.5 mm thick axial images acquired from the mandible through the frontal sinuses, with co trish and sagittal reformatting. For radiation dose reduction, the following was used: automated ex posure control, adjustment of mA and/or kV according to patient size. COMPARISON: None. FINDINGS: Image quality: Good Bones: No displaced fracture. Orbital mejia are intact. Age-indeterminate mild deformity of the nasal bone. There is also age-indeterminate mild rightward septal deviation. No overlying soft tissue swel ling.. Mandible is intact. Zygomatic arches and pterygoid plates are intact. No skull base fracture. Sinuses and mastoids: Mild paranasal sinus mucosal thickening. Soft tissues: No drainable hematoma. There is some right moderate periorbital hematoma/soft tissue co ntusion. No retro-orbital hematoma. Left lens replacement. Sphericity of the right globe appears main tained, correlate clinically however. Brain: Separately dictated IMPRESSION: Right periorbital hematoma and soft tissue contusion. No displaced fracture identified. Suspected old mild nasal and nasal septum deformity. Reviewed by: Darrius Riojas MD on 03/15/2023 4:47 PM PDT Approved by: Darrius Riojas MD on 03/15/2023 4:47 PM PDT Station ID: [id number]
[2023-03-15 17:23] VITALS: BP 167/77; O2SAT 98
== END 2023-03-15 17:16 | disposition home or self-care (01) ==
LOC: EDUNIT# → ED 14:17
DX: S05.41XA Penetrating wound of orbit with or without foreign body, right eye, initial encounter (principal); S09.90XA Unspecified injury of head, initial encounter; W01.0XXA Fall on same level from slipping, tripping and stumbling without subsequent striking against object, initial encounter; Y92.512 Supermarket, store or market as the place of occurrence of the external cause; I10 Essential (primary) hypertension; I48.91 Unspecified atrial fibrillation; Z79.01 Long term (current) use of anticoagulants
CPT/HCPCS: 12013; 99283; 99284

== ENCOUNTER 2023-07-11 08:00 | Outpatient (CLI) | payer MEDICARE, BC | END 2023-07-11 08:01 | disposition home or self-care (01) | LOC: LAB.S 08:00 | PROVIDERS: ATTEND Physician Assistant Medical | DX: J10.1 Influenza due to other identified influenza virus with other respiratory manifestations (principal) ==

== ENCOUNTER 2023-08-22 15:48 | Outpatient (CLI) | payer MEDICARE, BC | END 2023-08-22 15:49 | disposition EMS.NT | LOC: EMS 15:48 | DX: Z03.89 Encounter for observation for other suspected diseases and conditions ruled out (principal) ==

== ENCOUNTER 2023-10-30 15:20 | Emergency (ER) | payer MEDICARE, BC ==
[2023-10-30 15:36] VITALS: O2SAT 98
--- NOTE | 2023-10-30 15:44 | ED Physician Documentation ---
PD HPI HEAD INJURY - Stated complaint Stated Complaint: GLF - Chief complaint Chief Complaint: Trauma Hd/Nk - History obtained from History obtained from: Patient, Family - Additional information Additional information: 88-year-old gentleman with dementia on Eliquis presents by private vehicle with . About 2 and half hours ago he had a ground-level fall onto carpet scraping his forehead. There was no loss of consciousness. He is supposed to use a cane and/or walker and was not at the time. No other injuries. He has a mild headache and declines pain medications. Of note he has had frequent falls over the last couple of years PD PAST MEDICAL HISTORY - Past Medical History Past Medical History: Yes Cardiovascular: Hypertension, Atrial fibrillation Respiratory: None Neuro: None Endocrine/Autoimmune: None GI: GERD - Past Surgical History Past Surgical History: Yes Ortho: Other - Present Medications Home Medications: Ambulatory Orders Medication Instructions Recorded Confirmed Doxazosin [Cardura] 2 mg PO TID 07/15/19 03/15/23 Lisinopril [Zestril] 10 mg PO DAILY 07/15/19 03/15/23 amLODIPine [Norvasc] 5 mg ORAL DAILY 07/15/19 03/15/23 buPROPion [Wellbutrin Sr] 150 mg PO DAILY PM 12/24/20 03/15/23 Apixaban [Eliquis] 2.5 mg PO BID 07/18/22 03/15/23 Sertraline HCl 100 mg PO BID 07/18/22 03/15/23 Omeprazole Magnesium 20 mg PO DAILY 03/15/23 03/15/23 hydrOXYzine HCL [Hydroxyzine HCl] 25 mg PO BID PRN 03/15/23 03/15/23 - Allergies Allergies/Adverse Reactions: Allergies Allergy/AdvReac Type Severity Reaction Status Date / Time No Known Drug Allergies Allergy Verified 10/30/23 15:42 - Social History Does the pt smoke?: No Smoking Status: Never smoker Does the pt drink ETOH?: Yes Does the pt have substance abuse?: No - Immunizations Immunizations are current?: Yes PD ED PE NORMAL - Vitals Vital signs reviewed: Yes - General General: No acute distress, Well developed/nourished - HEENT HEENT: PERRL, EOMI - Neck Neck: Supple, no meningeal sign, No bony TTP - Neuro Neuro: hearing examiner 2-12 intact Eye Opening: Spontaneous Motor: Obeys Commands Verbal: Confused (v mild) GCS Score: 14 Results - Vitals Vitals: Vital Signs - 24 hr 10/30/23 10/30/23 15:24 15:43 Temperature 36.2 C L Heart Rate 68 64 Respiratory 15 18 Rate Blood Pressure 132/69 H 132/62 H O2 Saturation 98 98 Oxygen O2 Source Room air - Rads (name of study) CT of the cervical timing demonstrates DDD without trauma. Relevant Findings:: Final report received, EMP independent interpretation of test PD Medical Decision Making - ED course ED course: 88-year-old gentleman who lives at home and has frequent falls is on Eliquis and fell today. He is not using his walker. CT imaging of the head and neck was negative. I had an extensive discussion with the about the need to discuss the risk versus benefit ratio of anticoagulation with the PCP given his frequent falls. Also he has had a neurologic evaluation but it was mostly focused on his dementia, and discussed that it may be appropriate to reseek consultation with the focus being on the frequent falls. Departure - Departure Disposition: 01 Home, Self Care Clinical Impression: Head injury, Frequent falls, Anticoagulant long-term use Condition: Stable Record reviewed to determine appropriate education?: Yes Instructions: ED Head Injury Closed Comments: Follow-up with your doctor, the risk reward ratio for blood thinners may not be in your favor given your frequent falls. Also discuss your frequent falls with your primary care physician, a neurology referral may be in order. Return for new or worsening symptoms. CT of the head and neck showed changes from aging, nothing acute. Forms: PCP List Discharge Date/Time: 10/30/23 16:35
[2023-10-30 15:46] VITALS: BP 132/62
--- NOTE | 2023-10-30 16:22 | CT Report ---
PROCEDURE: CT cervical spine without contrast INDICATIONS: Trauma, pain TECHNIQUE: Helical axial CT of the cervical spine was obtained without contrast and reformatted in m ultiple planes. Radiation dose reduction was achieved utilizing automated exposure control or adjus tment of mA and/or kV according to patient size. COMPARISON: 03/15/2023 FINDINGS: Bones: No fractures or dislocations. Visualized superior ribs are intact. Diffuse disc space narro wing and sclerotic endplates are noted throughout the exam. Hypertrophic arthropathy present. Grade 1 degenerative anterior spinal listhesis C2-3 Soft tissues: Prevertebral soft tissues are normal in thickness. No paravertebral hematomas. No ap ical pneumothoraces. IMPRESSION: Degenerative disc disease and arthropathy without fracture or traumatic malalignment Reviewed by: Darwin Vieyra MD on 10/30/2023 3:21 PM AKDT Approved by: Darwin Vieyra MD on 10/30/2023 3:21 PM AKDT Station ID: [id number]
--- NOTE | 2023-10-30 16:24 | CT Report ---
PROCEDURE: CT brain without contrast INDICATIONS: Trauma, pain TECHNIQUE: Helical axial CT of the brain was obtained without contrast and reformatted in multiple p lanes. Radiation dose reduction was achieved using automated exposure control or adjustment of mA and /or kV according to patient size. COMPARISON: None FINDINGS: CSF spaces: Ventricles are appropriate in size and position. No hydrocephalus. Basal cisterns unre markable. Brain: No midline shift. No intracranial masses or hemorrhage. Sherman-white matter interface is norm al. Moderate atrophy and multifocal white matter chronic ischemic change noted. Atherosclerotic vasc ular calcification noted in the cavernous segments of both internal carotid arteries. Skull and face: Calvarium and skull base are unremarkable without suspicious lesion. Sinuses: Small left maxillary sinus retention cyst IMPRESSION: Atrophy and chronic ischemic change without acute hemorrhage or mass effect Reviewed by: Darwin Vieyra MD on 10/30/2023 3:23 PM AKDT Approved by: Darwin Vieyra MD on 10/30/2023 3:23 PM AKDT Station ID: [id number]
== END 2023-10-30 16:35 | disposition home or self-care (01) ==
LOC: ED 15:20
DX: S09.90XA Unspecified injury of head, initial encounter (principal); W18.30XA Fall on same level, unspecified, initial encounter; Z91.81 History of falling; R29.6 Repeated falls; I10 Essential (primary) hypertension; I48.91 Unspecified atrial fibrillation; Z79.01 Long term (current) use of anticoagulants; Z79.899 Other long term (current) drug therapy
CPT/HCPCS: 99283; 99284

== ENCOUNTER 2024-02-21 10:57 | Outpatient (CLI) | payer MEDICARE, BC | END 2024-02-21 23:59 | disposition EMS.NT | LOC: EMS 10:57 | DX: I95.9 Hypotension, unspecified (principal); R29.6 Repeated falls ==

== ENCOUNTER 2024-03-12 21:34 | Outpatient (CLI) | payer MEDICARE, BC | END 2024-03-12 21:35 | disposition critical access hospital (66) | LOC: EMS 21:34 | DX: S00.83XA Contusion of other part of head, initial encounter (principal); W01.0XXA Fall on same level from slipping, tripping and stumbling without subsequent striking against object, initial encounter; Y93.01 Activity, walking, marching and hiking; Y92.098 Other place in other non-institutional residence as the place of occurrence of the external cause | CPT/HCPCS: A0425; A0427 ==

== ENCOUNTER 2024-03-12 21:58 | Emergency (ER) | payer MEDICARE, BC ==
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
--- NOTE | 2024-03-13 01:52 | CT Report ---
PROCEDURE: Head WO INDICATIONS: fall +HT no LOC TECHNIQUE: Noncontrast 4.5 mm thick angled axial sections acquired from the foramen magnum to the vertex. For r adiation dose reduction, the following was used: automated exposure control, adjustment of mA and/or kV according to patient size. COMPARISON: 10/30/2023 FINDINGS: Image quality: Excellent. CSF spaces: Basal cisterns are patent. No extra-axial fluid collections. Ventricles are normal in size and shape. Brain: No midline shift. No intracranial masses or hemorrhage. Sherman-white matter interface is norm al. Moderate cerebral cortical atrophy. Small to moderate sized left retroauricular subcutaneous hem atoma. No underlying skull fracture. Skull and face: Calvarium and visualized facial bones are intact, without suspicious lesions. Sinuses: Left maxillary sinus occlusal thickening. Visualized sinuses and mastoids are otherwise jose ar. IMPRESSION: No acute intracranial trauma. Left retroauricular subcutaneous hematoma without underlying skull fracture. Age-related intracranial changes. Reviewed by: Luciana Deshpande MD on 03/13/2024 1:50 AM PDT Approved by: Luciana Deshpande MD on 03/13/2024 1:50 AM PDT Station ID: [id number]
[2024-03-13] MEDS: OLANZapine ODT 5 MG TABLET TL ONE (02:37)
--- NOTE | 2024-03-13 02:47 | CT Report ---
PROCEDURE: Cervical Spine WO INDICATIONS: s/p fall from standing TECHNIQUE: Noncontrast 3 mm thick sections acquired from the skull base to the T4 level. Sagittal and coronal r eformats were then constructed. For radiation dose reduction, the following was used: automated exp osure control, adjustment of mA and/or kV according to patient size. COMPARISON: None. FINDINGS: Image quality: Excellent. Bones: No fractures or dislocations. Grade 1, degenerative anterolisthesis C2 on 3. Severe disc hei ght loss at C2-3, C3-4, C4-5, and C5 6. Moderate disc height loss at C2-3. Prominent degeneration at the atlantodental interval. Visualized superior ribs are intact. Soft tissues: Prevertebral soft tissues are normal in thickness. No paravertebral hematomas. No ap ical pneumothoraces. IMPRESSION: No CT evidence of acute cervical spine trauma. Severe multilevel degeneration throughout the cervical spine. Reviewed by: Luciana Deshpande MD on 03/13/2024 2:46 AM PDT Approved by: Luciana Deshpande MD on 03/13/2024 2:46 AM PDT Station ID: [id number]
--- NOTE | 2024-03-13 02:49 | XRAY Report ---
PROCEDURE: Chest 1V INDICATIONS: right superior anterior rib pain TECHNIQUE: One view of the chest was acquired. COMPARISON: None. FINDINGS: Markedly rotated patient. Surgical changes and devices: None. Lungs and pleura: Moderate perihilar bronchial wall thickening and minor with the opacities. Left noreen ng is clear. Mediastinum: Mild cardiomegaly. Tortuous great vessel contour. Bones and chest wall: No suspicious bony lesions. Overlying soft tissues appear unremarkable. IMPRESSION: Right perihilar bronchial wall thickening may be secondary to chronic is likely aspiration, chronic p ulmonary edema. Mild cardiomegaly but no findings of acute CHF. Reviewed by: Luciana Deshpande MD on 03/13/2024 2:48 AM PDT Approved by: Luciana Deshpande MD on 03/13/2024 2:48 AM PDT Station ID: [id number]
--- NOTE | 2024-03-13 03:05 | ED Physician Documentation ---
Restraint [id number] - Immediate Situation Face to Face Evaluation Date: 03/13/24 Face to Face Evaluation Time: 03:00 Restraint Classification: Non-violent (Soft Restraint ONLY) (with chemical sedation (5mg IM zyprexa)) - Patient's Reaction & Behaviors Safety: Physically safe Verbal: Swearing Harm: Potential harm to self Physical: Aggressive behavior Other: Resting quietly - Behavioral Condition Attitude: Guarded Behavior: Uncooperative Orientation: Non-responsive Mood: Labile - Evaluation Pertinent History/Illicit Drugs/Medications/Results: See MDM for details
[2024-03-13] MEDS ORDERED: OLANZapine 10 MG VIAL IM ONE (03:15)
[2024-03-13] MEDS: OLANZapine 10 MG VIAL IM STA (03:18)
--- NOTE | 2024-03-13 04:55 | ED Physician Documentation ---
Restraint [id number] - Immediate Situation Face to Face Evaluation Date: 03/13/24 Face to Face Evaluation Time: 05:00 Restraint Classification: Violent, Physical Hold, w/ Chemical - Patient's Reaction & Behaviors Safety: Physically safe Verbal: Demanding Harm: Potential harm to self (fall risk, confused) Physical: Fighting restraints Other: Attempting removal of medically necessary device(s) - Behavioral Condition Attitude: Guarded Behavior: Uncooperative Orientation: Non-responsive Mood: Labile - Evaluation Pertinent History/Illicit Drugs/Medications/Results: See MDM for details - Plan Need to Initiate/Renew Violent or Chemical Restraint: will dc when safe
[2024-03-13] MEDS: HALOPERIDOL 5 MG/ML VIAL IM STA (05:03)
[2024-03-13 07:27] VITALS: BP 137/88; O2SAT 95
== END 2024-03-13 10:00 | disposition home or self-care (01) ==
LOC: EDUNIT# → ED 21:58
DX: S00.03XA Contusion of scalp, initial encounter (principal); W01.198A Fall on same level from slipping, tripping and stumbling with subsequent striking against other object, initial encounter; W20.8XXA Other cause of strike by thrown, projected or falling object, initial encounter; Y93.01 Activity, walking, marching and hiking; Y92.009 Unspecified place in unspecified non-institutional (private) residence as the place of occurrence of the external cause; R41.0 Disorientation, unspecified; T45.516A Underdosing of anticoagulants, initial encounter; Z76.4 Other boarder to healthcare facility
CPT/HCPCS: 70450; 71045; 72125; 93005; 96372; 99284; 99285; A9270

== ENCOUNTER 2024-03-13 10:01 | Outpatient (CLI) | payer MEDICARE, BC | END 2024-03-13 10:02 | disposition home or self-care (01) | LOC: EMS 10:01 | PROVIDERS: ATTEND Emergency Medicine | DX: R41.0 Disorientation, unspecified (principal); S00.93XA Contusion of unspecified part of head, initial encounter; W19.XXXA Unspecified fall, initial encounter; R29.6 Repeated falls; F03.90 Unspecified dementia, unspecified severity, without behavioral disturbance, psychotic disturbance, mood disturbance, and anxiety; R45.1 Restlessness and agitation | CPT/HCPCS: A0425; A0428 ==

== ENCOUNTER 2024-03-17 13:15 | Emergency (ER) | payer MEDICARE, BC ==
--- NOTE | 2024-03-17 15:00 | ED Physician Documentation ---
History of Present Illness - Stated complaint Stated Complaint: LESION BEHIND EAR - Chief complaint Chief Complaint: Wound - Additonal information Additional information: Patient is an 88-year-old male presenting to the emergency department with his with bruising behind left ear. According to she did not notice this bruising earlier. Today she noticed worsening bruising so she called her PCP and they sent her to the emergency department to evaluate for possible worsening hematoma. Patient was seen here 5 days ago for a fall. He had a CT of the head and the neck for further evaluation. PD PAST MEDICAL HISTORY - Past Medical History Past Medical History: Yes Cardiovascular: Hypertension, Atrial fibrillation Respiratory: None Neuro: None Endocrine/Autoimmune: None GI: GERD - Past Surgical History Past Surgical History: Yes Ortho: Other - Present Medications Home Medications: Ambulatory Orders Medication Instructions Recorded Confirmed Doxazosin [Cardura] 2 mg PO TID 07/15/19 03/15/23 Lisinopril [Zestril] 10 mg PO DAILY 07/15/19 03/15/23 amLODIPine [Norvasc] 5 mg ORAL DAILY 07/15/19 03/15/23 buPROPion [Wellbutrin Sr] 150 mg PO DAILY PM 12/24/20 03/15/23 Apixaban [Eliquis] 2.5 mg PO BID 07/18/22 03/15/23 Sertraline HCl 100 mg PO BID 07/18/22 03/15/23 Omeprazole Magnesium 20 mg PO DAILY 03/15/23 03/15/23 hydrOXYzine HCL [Hydroxyzine HCl] 25 mg PO BID PRN 03/15/23 03/15/23 - Allergies Allergies/Adverse Reactions: Allergies Allergy/AdvReac Type Severity Reaction Status Date / Time benztropine Allergy Unknown Anaphylaxis Verified 03/17/24 13:21 - Social History Does the pt smoke?: No Smoking Status: Never smoker Does the pt drink ETOH?: Yes Does the pt have substance abuse?: No - Immunizations Immunizations are current?: Yes PD ED PE NORMAL - Vitals Vital signs reviewed: Yes - General General: Alert and oriented X 3 - HEENT HEENT: Other (Ecchymosis noted to postauricular area of left ear. No significant swelling no tenderness on examination full range of motion of neck intact no C- spine tenderness. Oropharynx appears clear no signs of persistent bleeding.) - Cardiac Cardiac: RRR - Respiratory Respiratory: No respiratory distress - Neuro Neuro: Alert and oriented X 3 Eye Opening: Spontaneous Motor: Obeys Commands Verbal: Oriented GCS Score: 15 - Free text exam Free text exam: Patient has old bruising to upper and lower extremities chest and back that is intermittent and appears diffuse most likely from recurrent falls at home. Results - Vitals Vitals: Vital Signs - 24 hr 03/17/24 13:21 Temperature 36.8 C Heart Rate 60 Respiratory 16 Rate Blood Pressure 123/60 O2 Saturation 98 Oxygen O2 Source Room air - Rads (name of study) CT head Relevant Findings:: EMP independent interpretation of test PD Medical Decision Making - ED course Complexity details: reviewed old records, reviewed results ED course: Patient 88-year-old male presenting to the emergency department with left postauricular hematoma and bruising. notes that he was here on the fifth for a fall. She notes he did not have the bruising at the time and she called her PCP office and they instructed her to come here for further evaluation. On exam patient has no mastoid tenderness full range of motion of neck no signs of hemotympanum and no signs of significant swelling to left side of head.Patient is not on any blood thinners at home at this time. Repeat CT scan here in emergency department shows interval decrease in retroauricular hematoma compared to imaging per first performed on 03 13. Had long discussion with patient's symptoms could have not been as obvious or she may have missed this when she was changing him earlier. Discussed with bruising may be persistent for the next week but should begin to improve on its own. Patient instructed to return with any new or worsening symptoms. Patient and are agreeable with this plan. They will follow-up with PCP in the outpatient setting. Departure - Departure Forms: PCP List
--- NOTE | 2024-03-17 16:04 | CT Report ---
PROCEDURE: Head WO INDICATIONS: concern for retroarticular hematoma enlargement TECHNIQUE: Noncontrast 4.5 mm thick angled axial sections acquired from the foramen magnum to the vertex. For r adiation dose reduction, the following was used: automated exposure control, adjustment of mA and/or kV according to patient size. COMPARISON: 03/13/2024 FINDINGS: Image quality: Excellent. CSF spaces: Basal cisterns are patent. No extra-axial fluid collections. Ventricles are normal in size and shape. Brain: No midline shift. No intracranial masses or hemorrhage. Sherman-white matter interface is norm al. Skull and face: Calvarium and visualized facial bones are intact, without suspicious lesions. Sinuses: Visualized sinuses and mastoids are clear. IMPRESSION: No acute intracranial pathology. Interval decrease in size of the extracalvarial, retroauricular hematoma. Reviewed by: Aldair Pagan MD on 03/17/2024 4:03 PM PDT Approved by: Aldair Pagan MD on 03/17/2024 4:03 PM PDT Station ID: [id number]
[2024-03-17 16:39] VITALS: BP 139/87; O2SAT 100
== END 2024-03-17 16:37 | disposition home or self-care (01) ==
LOC: ED 13:15
DX: S00.432A Contusion of left ear, initial encounter (principal); W19.XXXA Unspecified fall, initial encounter
CPT/HCPCS: 99283; 99284